=== PATIENT | male | born 1995 | race Two or more races ===

== ENCOUNTER 2025-09-23 01:53 | Emergency (ER) | payer SELFPAY ==
[~2025-09-23] VITALS: Ht 175.3 cm; Wt 90.7 kg
[2025-09-23] MEDS ORDERED: FAMOTIDINE/PF INJ 20 MG/2 ML VIAL IV ONE (02:21)
[2025-09-23] MEDS ORDERED: ONDANSETRON HCL/PF 4 MG/2 ML VIAL ONE (02:21)
[2025-09-23] MEDS: FAMOTIDINE/PF INJ 20 MG/2 ML VIAL IV ONE (02:39)
[2025-09-23] MEDS: IV NS 0.9% 1,000 ML BAG IV ONE (02:39)
[2025-09-23] MEDS: ONDANSETRON HCL/PF 4 MG/2 ML VIAL IVP ONE (02:40)
[2025-09-23 02:48] LABS: PLATELET COUNT (AUTO) 322 K/uL (150-450); RED BLOOD CELL COUNT(AUTO) 6.24 MIL/uL (4.5-6.0); RED CELL DISTRIBUTION WIDTH 13.5 % (11.5-15.0); WHITE BLOOD COUNT (AUTO) 11.5 K/uL (4.3-11.0)
[2025-09-23 02:55] LABS: CALCIUM, SERUM 9.6 mg/dL (8.5-10.1); CREATININE 1.0 mg/dL (0.6-1.3); SODIUM SERUM 141 mmol/L (136-145); UREA NITROGEN, BLOOD 10 mg/dL (7-18)
[2025-09-23 02:59] LABS: ASPARTATE AMINOTRANSFERASE 16 U/L (15-37); TOTAL PROTEIN, SERUM 8.3 g/dL (6.4-8.2)
[2025-09-23] MEDS ORDERED: ONDA4TAB5 PO (03:22)
[2025-09-23 03:31] VITALS: BP 134/78; TEMP 98.8; O2SAT 99
== END 2025-09-23 03:32 | disposition home or self-care (01) ==
LOC: ER 01:57
DX: R11.10 Vomiting, unspecified (principal); R10.13 Epigastric pain; R07.89 Other chest pain; Z60.2 Problems related to living alone
CPT/HCPCS: 99285; 96374; 71045; 96361; 96375; 93005; 85025; 80048; 83690; 80076; 36415; 84484; J1308; J2405; J7030